=== PATIENT | male | born 1980 ===

== ENCOUNTER → 2021-09-29 | Outpatient (CLI) | payer SELFPAY ==
--- NOTE | 2021-10-01 08:42 | SLEEP ---
DATE OF STUDY: 09/29/2021 OBJECTIVE: The patient is a 41-year-old male with excessive somnolence, nightmares, dream enactment, fatigue. Unity sleep score 4. INTERPRETATION: Sleep architecture is characterized by sleep efficiency of 93%, across the 9.2 hours of recording time. Stage volumes are appropriate for age. Sleep onset latency is 1 minute. Respiratory monitoring shows an apnea-hypopnea index of 0.2 events per hour of sleep with a minimum oxygen saturation of 91%. Periodic limb movements of sleep occur at the rate of 7 per hour of sleep, 3 per hour associated with arousal. No cardiac arrhythmias observed. IMPRESSION: Normal polysomnogram showing no evidence of sleep disordered breathing. Please also see the multiple sleep latency test report. JOSE DR: Sage TID: [id number]
--- NOTE | 2021-10-01 09:07 | SLEEP ---
DATE OF STUDY: 09/30/2021 OBJECTIVE: The patient is a 41-year-old male with excessive somnolence. Previous nighttime polysomnogram the night before the study is negative. INTERPRETATION: On nap one, sleep latency is 1.5 minutes and REM was achieved. On nap two, sleep latency was 1 minute without REM. On nap three, the sleep latency was 4 minutes and there was REM sleep. On nap four, sleep latency is 5.5 minutes and there is REM sleep. On nap five, sleep latency is 2.5 minutes and there is REM sleep. The mean sleep latency across 5 naps is 2.9 minutes and 4 of the 5 naps have REM sleep. IMPRESSION: Abnormal multiple sleep latency test showing excessive sleepiness consistent with narcolepsy. Thank you for letting us help with the patient's care. CIRO DR: Sage TID: [id number] CC: SHIRA Ordaz
== END ==
LOC: SLPLAB 19:22
PROVIDERS: ATTEND Nurse Practitioner Family
DX: G47.19 Other hypersomnia (principal); R55 Syncope and collapse; R41.0 Disorientation, unspecified
CPT/HCPCS: 95805; 95810